=== PATIENT | male | born 1985 | race African-American/Black ===

== ENCOUNTER 2016-08-22 09:38 | Emergency (ER) | payer SELFPAY ==
[2016-08-22 09:42] VITALS: BP 141/88
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
== END 2016-08-22 10:53 | disposition home or self-care (01) ==
LOC: ER 09:38
PROC: 2W3CX1Z Immobilization of Right Lower Arm using Splint (ICD-10-PCS; principal; 2016-08-22)
DX: S62.617A Displaced fracture of proximal phalanx of left little finger, initial encounter for closed fracture (principal); W22.01XA Walked into wall, initial encounter; Y93.89 Activity, other specified; Y92.59 Other trade areas as the place of occurrence of the external cause; F17.210 Nicotine dependence, cigarettes, uncomplicated; Z71.6 Tobacco abuse counseling
CPT/HCPCS: 99283